=== PATIENT | female | born 1990 | race Caucasian/White ===

== ENCOUNTER → 2020-02-13 | Outpatient (CLI) | payer BC, OTHER ==
--- NOTE | 2020-02-15 15:54 | US ---
EXAM DESCRIPTION: Breast,Right: Ultrasound. CLINICAL HISTORY: 29 yearsFemaleBREAST LUMP.. Palpable lump anterior lower outer quadrant right breast. "Size of the BB, tender.". No personal history of breast cancer. Remote family history of breast cancer. Menarche age approximately 11. Childbirth age 27. Premenopausal. No HRT. Lifetime risk of developing breast cancer (Tyrer-Cuzick model)(%): Not applicable due to patient age less than 35 years. COMPARISON: None. TECHNIQUE: Transcutaneous scanning of the region of interest lower outer quadrant of the anterior right breast. utilizing rmairez-scale and Doppler modes. Scanning performed by the resolution analyst and observation by Dr. Prince. FINDINGS: Mostly fibroglandular tissues with peripheral fatty replacement in the anterior third of the lower outer quadrant of the right breast. Circumscribed anechoic cyst with well-defined margins wider than tall orientation and posterior acoustic enhancement just under the skin surface in the anterior adipose tissue of the breast.. Nonvascular. Fibrocystic tissues also present. No dominant solid mass. No large calcifications. No overlying skin changes. IMPRESSION: No suspicious or significant imaging findings. Right breast cyst and fibrocystic tissues. BI-RADS CATEGORY: 1 - NEGATIVE FOLLOW UP: The region of interest should be followed on clinical grounds and if noted to change in size or character, a directed follow-up ultrasound examination may be performed. Written communication explaining the findings and follow-up, will be mailed to the patient and referring health care provider. The FINDINGS and the FOLLOW-UP plan were reviewed in person with the patient after the examination. According to the [employer], yearly mammograms are recommended starting at age 40 and continuing as long as a woman is in good health. Any breast change noted on a breast self-exam should be reported promptly to the patient's healthcare provider. Breast MRI is recommended for women with an approximately 20-25% or greater lifetime risk of breast cancer, including women with a strong family history of breast or ovarian cancer and women who have been treated for Hodgkin's disease. A negative mammographic report should not delay tissue diagnosis in patients with significant clinical history or physical findings. Extremely dense breast tissue limits the sensitivity of digital mammography. Electronically signed by: Obey Prince MD 02/15/2020 3:52 PM CDT
== END ==
LOC: MAMMO 13:52
PROVIDERS: ATTEND Family Medicine
DX: N60.01 Solitary cyst of right breast (principal)

== ENCOUNTER → 2020-03-05 | Outpatient (CLI) | payer OTHER | LOC: GMAL 11:53 | PROVIDERS: ATTEND Family Medicine | DX: Z00.01 Encounter for general adult medical examination with abnormal findings (principal) ==